=== PATIENT | male | born 1970 | race African-American/Black ===

== ENCOUNTER 2022-12-03 22:51 | Emergency (ER) | payer SELFPAY ==
[~2022-12-03] VITALS: Ht 175.3 cm; Wt 74.0 kg
[2022-12-04] LABS: BASOPHILS % 0.6 % (0.0-2.0); EOSINOPHILS % 0.7 % (0.0-5.0); HEMOGLOBIN. 16.2 g/dL (14.0-18.0); LYMPHOCYTES % 28.5 % (20.0-50.0); MEAN CORPUSCULAR HEMOGLOBIN 29.5 pg (28.0-32.0); MEAN CORPUSCULAR VOLUME 85.7 fL (80.0-94.0); MEAN PLATELET VOLUME 7.5 fl (7.4-10.4); MONOCYTES % 7.9 % (2.0-8.0); NEUTROPHILS % 62.3 % (40.0-76.0); PLATELET 317 x1000/uL (130-400); RED BLOOD CELL COUNT 5.48 mill/uL (4.7-6.1); RED CELL DISTRIBUTION WIDTH 14.6 % (11.6-14.6)
[2022-12-04 00:05] LABS: CHLORIDE 101 mEq/L (98-107)
[2022-12-04 00:12] VITALS: BP 152/95
[2022-12-04] MEDS ORDERED: IBUP-2029 MT (00:57)
== END 2022-12-04 01:09 | disposition home or self-care (01) ==
LOC: ER 22:51
DX: K08.89 Other specified disorders of teeth and supporting structures (principal)
CPT/HCPCS: 36415; 80053; 85025; 99283

== ENCOUNTER 2023-01-13 01:28 | Inpatient (IN) | payer MEDICAID ==
[~2023-01-13] VITALS: Ht 152.4 cm; Wt 66.7 kg
[~2023-01-13 01:28] MED LIST: IBUP-2029 MT
[2023-01-13 03:46] LABS: CHLORIDE 95 mEq/L (98-107)
[2023-01-13 04:27] LABS: BASOPHILS % 0.3 % (0.0-2.0); EOSINOPHILS % 0.1 % (0.0-5.0); HEMATOCRIT. 49.4 % (42.0-52.0); HEMOGLOBIN. 16.7 g/dL (14.0-18.0); LYMPHOCYTES % 7.8 % (20.0-50.0); MEAN CORPUSCULAR HEMOGLOBIN 29.5 pg (28.0-32.0); MEAN CORPUSCULAR VOLUME 87.1 fL (80.0-94.0); MEAN PLATELET VOLUME 8.7 fl (7.4-10.4); MONOCYTES % 6.9 % (2.0-8.0); NEUTROPHILS % 84.9 % (40.0-76.0); PLATELET 311 x1000/uL (130-400); RED BLOOD CELL COUNT 5.67 mill/uL (4.7-6.1); RED CELL DISTRIBUTION WIDTH 14.7 % (11.6-14.6)
[2023-01-13] MEDS ORDERED: KETOROLAC 30MG/ML VIAL IV STA (06:07)
[2023-01-13] MEDS ORDERED: ONDANSETRON HCL 4MG/2ML INJ IV STA (06:07)
[2023-01-13] MEDS ORDERED: MAGNESIUM/ALUMINUM HYDROXIDE/SIMETHICONE 30ML UDC PO STA (06:07)
[2023-01-13] MEDS ORDERED: DICYCLOMINE 10 MG/5 ML ORAL SYR PO STA (06:07)
[2023-01-13] MEDS ORDERED: VISCOUS LIDOCAINE 2% 15 ML UDC PO STA (06:07)
[2023-01-13] MEDS ORDERED: MAGNESIUM/ALUMINUM HYDROXIDE/SIMETHICONE 30ML UDC PO NR (08:30)
[2023-01-13 09:30] LABS: CLARITY URINE CLEAR (CLEAR); COLOR URINE DARK YELLOW (YELLOW); PH URINE 5.5 (4.5-8.0); SPECIFIC GRAVITY URINE 1.028 (1.005-1.030)
[2023-01-13 09:31] LABS: KETONES URINE 3+ (NEGATIVE); OCCULT BLOOD URINE NEGATIVE (NEGATIVE); PROTEIN URINE 2+ (NEGATIVE)
[2023-01-13 09:32] LABS: LEUKOCYTE ESTERASE URINE TRACE (NEGATIVE); NITRITE URINE NEGATIVE (NEGATIVE)
[2023-01-13] MEDS ORDERED: GUAIFENESIN 200MG/10ML SUGAR FREE UDC PO PRN (10:45)
[2023-01-13] MEDS ORDERED: ACETAMINOPHEN 325MG TABLET PO PRN (10:45)
[2023-01-13] MEDS ORDERED: NITROGLYCERIN 0.4MG TABLET SL SL PRN (10:45)
[2023-01-13] MEDS ORDERED: ONDANSETRON HCL 4MG/2ML INJ IV PRN (10:45)
[2023-01-13] MEDS: AMLODIPINE 10MG TABLET PO SCH (10:45)
[2023-01-13] MEDS ORDERED: IPRATROPIUM/ALBUTEROL 0.5-3(2.5)MG/3ML NEB NEB PRN (10:45)
[2023-01-13] MEDS ORDERED: MAGNESIUM/ALUMINUM HYDROXIDE/SIMETHICONE 30ML UDC PO PRN (10:45)
[2023-01-13] MEDS ORDERED: DOCUSATE SODIUM 100MG CAPSULE PO PRN (10:45)
[2023-01-13] MEDS ORDERED: MVI, ADULT NO.1 10 ML, FOLIC ACID 1 MG, THIAMINE HCL 100 MG in SODIUM CHLORIDE 0.9% 1,0... IV SCH ×4 (11:00)
[2023-01-13] MEDS: ENOXAPARIN 40MG/0.4ML SYR SUBCUT SCH (11:00)
[2023-01-13] MEDS: PANTOPRAZOLE SODIUM 40 MG/VIAL IV SCH (11:00)
[2023-01-13 11:22] LABS: ETHANOL BLOOD < 10 mg/dL (-10); HDL CHOLESTEROL 90 mg/dL (40-59); LDL CHOLESTEROL 90 mg/dL (5-100); TOTAL IRON BINDING CAPACITY 338 ug/dL (250-450)
[2023-01-13 11:52] LABS: FOLIC ACID (FOLATE) SERUM 15.9 ng/mL (>5.38)
[2023-01-13 12:45] VITALS: BP 168/97; PULSE 78; RESP 19; TEMP 96.1
[2023-01-13] MEDS: KETOROLAC 15MG/ML VIAL IV PRN ×3 (13:01→23:51)
[2023-01-13 13:28] VITALS: BP 174/87; PULSE 66; RESP 16; TEMP 96.1
[2023-01-13 16:00] VITALS: BP 204/99; PULSE 75; RESP 18; TEMP 97.9
[2023-01-13] MEDS: ACETAMINOPHEN 325MG TABLET PO PRN (16:08)
[2023-01-13] MEDS: CLONIDINE 0.1MG TABLET PO PRN ×2 (16:08→23:51)
[2023-01-13] MEDS: NITROGLYCERIN OINT 1GM/INCH UDPKT TD SCH ×2 (17:30→21:08)
[2023-01-13] MEDS: SODIUM CHLORIDE 0.9% 1,000 ML IV SCH (19:00)
[2023-01-13 20:00] VITALS: BP 176/106; PULSE 82; RESP 20; TEMP 97.7
[2023-01-13] MEDS ORDERED: HYDRALAZINE 20MG/ML VIAL IV PRN (20:15)
[2023-01-13] MEDS: MORPHINE SULFATE 2 MG/ML CPJ (NOT FOR IM USE) IV PRN (20:33)
[2023-01-13] MEDS ORDERED: HYDRALAZINE 10 MG in SODIUM CHLORIDE 0.9% 49.5 ML IV PRN (20:45)
[2023-01-13] MEDS: ZOLPIDEM TARTRATE 5MG TABLET PO PRN (23:43)
[2023-01-14] VITALS: BP 161/95; PULSE 82; RESP 19; TEMP 97.5
[2023-01-14] MEDS: SODIUM CHLORIDE 0.9% 1,000 ML IV SCH ×3 (03:00→19:00)
[2023-01-14 04:00] VITALS: BP 163/96; PULSE 71; RESP 18; TEMP 98.1
[2023-01-14] MEDS: MORPHINE SULFATE 2 MG/ML CPJ (NOT FOR IM USE) IV PRN ×3 (05:49→20:53)
[2023-01-14] MEDS: NITROGLYCERIN OINT 1GM/INCH UDPKT TD SCH ×3 (05:57→20:53)
[2023-01-14 07:24] LABS: HEMATOCRIT. 46.9 % (42.0-52.0); HEMOGLOBIN. 16.3 g/dL (14.0-18.0); MEAN CORPUSCULAR VOLUME 86.4 fL (80.0-94.0); MEAN PLATELET VOLUME 9.1 fl (7.4-10.4); PLATELET 236 x1000/uL (130-400); RED BLOOD CELL COUNT 5.43 mill/uL (4.7-6.1); RED CELL DISTRIBUTION WIDTH 14.5 % (11.6-14.6)
[2023-01-14 07:40] LABS: CHLORIDE 101 mEq/L (98-107)
[2023-01-14 07:54] LABS: PHOSPHORUS 2.7 mg/dL (2.5-4.9)
[2023-01-14 08:00] VITALS: BP 148/83; PULSE 89; RESP 18; TEMP 98.5
[2023-01-14] MEDS: AMLODIPINE 10MG TABLET PO SCH (08:24)
[2023-01-14] MEDS: PANTOPRAZOLE SODIUM 40 MG/VIAL IV SCH (08:25)
[2023-01-14 08:47] LABS: AMYLASE 2413 IU/L (25-115)
[2023-01-14 12:00] VITALS: BP 149/88; PULSE 92; RESP 19; TEMP 97.3
[2023-01-14 12:06] LABS: *AMPHETAMINES SCREEN URINE NEGATIVE (NEGATIVE); *BARBITURATES SCREEN URINE NEGATIVE (NEGATIVE); *BENZODIAZEPINES SCREEN URINE NEGATIVE (NEGATIVE); *COCAINE SCREEN URINE NEGATIVE (NEGATIVE); CANNABINOID URINE SCREEN PRESUMTIVE POSITIVE (NEGATIVE); METHADONE URINE SCREEN NEGATIVE (NEGATIVE); OPIATES URINE SCREEN NEGATIVE (NEGATIVE); PHENCYCLIDINE URINE SCREEN NEGATIVE (NEGATIVE)
[2023-01-14] MEDS: ENOXAPARIN 40MG/0.4ML SYR SUBCUT SCH (15:05)
[2023-01-14 16:00] VITALS: BP 166/95; PULSE 92; RESP 18; TEMP 100.2
[2023-01-14 20:00] VITALS: BP 149/90; PULSE 93; RESP 20; TEMP 98.1
[2023-01-15] VITALS: BP 147/84; PULSE 94; RESP 18; TEMP 98.1
[2023-01-15] MEDS: SODIUM CHLORIDE 0.9% 1,000 ML IV SCH ×3 (03:00→23:01)
[2023-01-15 04:00] VITALS: BP 155/87; PULSE 91; RESP 20; TEMP 99.1
[2023-01-15] MEDS: ZOLPIDEM TARTRATE 5MG TABLET PO PRN ×2 (04:00→20:58)
[2023-01-15 04:25] LABS: PLATELET ESTIMATE NORMAL
[2023-01-15] MEDS: NITROGLYCERIN OINT 1GM/INCH UDPKT TD SCH ×3 (06:00→20:59)
[2023-01-15] MEDS: ACETAMINOPHEN 325MG TABLET PO PRN ×3 (09:38→20:58)
[2023-01-15] MEDS: AMLODIPINE 10MG TABLET PO SCH (09:38)
[2023-01-15] MEDS: CLONIDINE 0.1MG TABLET PO PRN (10:30)
[2023-01-15] MEDS: FAMOTIDINE 20MG/2ML VIAL IV SCH ×2 (11:00→21:16)
[2023-01-15 12:00] VITALS: BP 166/94; PULSE 90; RESP 19; TEMP 98
[2023-01-15] MEDS: ENOXAPARIN 40MG/0.4ML SYR SUBCUT SCH (12:26)
[2023-01-15 16:00] VITALS: BP 139/79; PULSE 99; RESP 18; TEMP 99.9
[2023-01-15 20:00] VITALS: BP 146/82; PULSE 89; RESP 19; TEMP 98.4
[2023-01-16] VITALS: BP 154/87; PULSE 88; RESP 18; TEMP 97.2
[2023-01-16] MEDS: SODIUM CHLORIDE 0.9% 1,000 ML IV SCH ×2 (03:00→08:44)
[2023-01-16 04:00] VITALS: BP 174/85; PULSE 86; RESP 19; TEMP 98.6
[2023-01-16] MEDS: MORPHINE SULFATE 2 MG/ML CPJ (NOT FOR IM USE) IV PRN (05:15)
[2023-01-16] MEDS: NITROGLYCERIN OINT 1GM/INCH UDPKT TD SCH (06:54)
[2023-01-16] MEDS: CLONIDINE 0.1MG TABLET PO PRN (06:55)
[2023-01-16] MEDS: ACETAMINOPHEN 325MG TABLET PO PRN ×2 (07:15→12:21)
[2023-01-16 08:02] VITALS: BP 159/92; PULSE 91; RESP 20; TEMP 98.4
[2023-01-16] MEDS: FAMOTIDINE 20MG/2ML VIAL IV SCH (08:44)
[2023-01-16] MEDS: AMLODIPINE 10MG TABLET PO SCH (08:49)
[2023-01-16] MEDS: ENOXAPARIN 40MG/0.4ML SYR SUBCUT SCH (11:00)
[2023-01-16 12:00] VITALS: BP 143/78; PULSE 20; RESP 19; TEMP 98.1
[2023-01-16 12:23] LABS: CHLORIDE 100 mEq/L (98-107)
[2023-01-16 12:29] LABS: AMYLASE 358 IU/L (25-115)
[2023-01-16] MEDS ORDERED: AMLO10TA80 PO (12:54)
[2023-01-16] MEDS ORDERED: ISMO20 MT (12:54)
[2023-01-16 13:26] VITALS: BP 143/78; PULSE 80; TEMP 98.1; O2SAT 97
== END 2023-01-16 13:50 | disposition home or self-care (01) | DRG 282 ==
LOC: ER 01:28 → 6EST 10:21
PROVIDERS: ADMIT Internal Medicine; ATTEND Internal Medicine
DX: K85.20 Alcohol induced acute pancreatitis without necrosis or infection (principal); E88.09 Other disorders of plasma-protein metabolism, not elsewhere classified; E87.1 Hypo-osmolality and hyponatremia; E83.52 Hypercalcemia; I10 Essential (primary) hypertension; Y90.9 Presence of alcohol in blood, level not specified; F10.10 Alcohol abuse, uncomplicated; Z79.1 Long term (current) use of non-steroidal anti-inflammatories (NSAID); Z79.899 Other long term (current) drug therapy
CPT/HCPCS: 36415; 76705; 80048; 80053; 80061; 80305; 80320; 81003; 82150; 82607; 82746; 82962; 83036; 83540; 83550; 83735; 84100; 85025; 93005; 93970; 99285; C9113; J0360; J1650; J1885; J2270; J2405; J3411; J3490; J7030; G0480

== ENCOUNTER 2023-03-09 10:01 | Emergency (ER) | payer MEDICAID ==
[~2023-03-09] VITALS: Ht 177.8 cm; Wt 68.0 kg
[~2023-03-09 10:01] MED LIST changes: +AMLO10TA80 PO; -IBUP-2029 MT; +ISMO20 MT
[2023-03-09 10:17] VITALS: BP 115/82; PULSE 100; RESP 16; TEMP 98.4; O2SAT 98
[2023-03-09 15:55] LABS: BASOPHILS % 0.4 % (0.0-2.0); EOSINOPHILS % 0.5 % (0.0-5.0); HEMATOCRIT. 45.9 % (42.0-52.0); HEMOGLOBIN. 15.7 g/dL (14.0-18.0); LYMPHOCYTES % 14.1 % (20.0-50.0); MEAN CORPUSCULAR HEMOGLOBIN 29.6 pg (28.0-32.0); MEAN CORPUSCULAR HGB CONC 34.2 g/dL (31.0-37.0); MEAN CORPUSCULAR VOLUME 86.4 fL (80.0-94.0); MEAN PLATELET VOLUME 7.9 fl (7.4-10.4); MONOCYTES % 11.2 % (2.0-8.0); NEUTROPHILS % 73.8 % (40.0-76.0); PLATELET 439 x1000/uL (130-400); RED BLOOD CELL COUNT 5.31 mill/uL (4.7-6.1); RED CELL DISTRIBUTION WIDTH 14.5 % (11.6-14.6); WHITE BLOOD COUNT 17.7 x1000/uL (4.5-11.0)
[2023-03-09 16:04] LABS: CHLORIDE 93 mEq/L (98-107); INDEX HEMOLYSI 1 (1-3); INDEX ICTERIC 1 (1-4); INDEX LIPEMIC 1 (1-3); POTASSIUM 3.4 mEq/L (3.5-5.1); SODIUM 131 mEq/L (136-145)
[2023-03-09 16:14] LABS: ALANINE AMINOTRANSFERASE 23 IU/L (13-61); ASPARTATE AMINOTRANSFERASE 12 IU/L (15-37); BILIRUBIN TOTAL 0.4 mg/dL (0.1-1.0); CALCIUM 9.9 mg/dL (8.5-10.1); CARBON DIOXIDE 32 mEq/L (21-32); CREATININE 0.7 mg/dL (0.6-1.3); GLUCOSE 124 mg/dL (70-105); PROTEIN TOTAL 8.6 g/dL (6.0-8.3); TROPONIN I HIGH SENSITIVITY 8 ng/L (<78); UREA NITROGEN BLOOD 3 mg/dL (7-21)
[2023-03-09] MEDS ORDERED: SODIUM CHLORIDE 0.9% 1,000 ML IV ONE (16:30)
[2023-03-09 20:41] LABS: CLARITY URINE CLEAR (CLEAR); COLOR URINE YELLOW (YELLOW); GLUCOSE URINE NEGATIVE (NEGATIVE); KETONES URINE NEGATIVE (NEGATIVE); LEUKOCYTE ESTERASE URINE NEGATIVE (NEGATIVE); NITRITE URINE NEGATIVE (NEGATIVE); OCCULT BLOOD URINE NEGATIVE (NEGATIVE); PROTEIN URINE TRACE (NEGATIVE); SPECIFIC GRAVITY URINE 1.015 (1.005-1.030)
[2023-03-09 20:56] LABS: BACTERIA URINE TRACE; SQUAMOUS EPITHELIAL CELL URINE RARE /lpf (RARE/1+)
[2023-03-09 20:57] LABS: RBC URINE NONE SEEN /hpf (0-2); WBC URINE 0-2 /hpf (0-2)
== END 2023-03-09 21:57 | disposition home or self-care (01) ==
LOC: ER 10:26
DX: R42 Dizziness and giddiness (principal); E87.1 Hypo-osmolality and hyponatremia; E86.0 Dehydration; E87.8 Other disorders of electrolyte and fluid balance, not elsewhere classified; I10 Essential (primary) hypertension
CPT/HCPCS: 80053; 81003; 85025; 84484; 36415; 71045; 93005; 96360; 99285; J7030; Z7610